=== PATIENT | female | born 1935 ===

== ENCOUNTER 2018-02-07 04:05 | Emergency (ER) | payer MEDICARE, OTHER ==
[2018-02-07 04:20] VITALS: RESP 20; TEMP 97
[2018-02-07] MEDS ORDERED: Sodium Chloride 0.9% 1,000 ML IV ONE (04:34)
[2018-02-07] MEDS ORDERED: Sodium Chloride 0.9% 1,000 ML ONE (04:47)
[2018-02-07] MEDS ORDERED: Morphine 4 MG/ML VIAL ONE (04:47)
[2018-02-07 04:55] LABS: SQUAMOUS EPITHIAL 2 /hpf (0-5); URINE BILIRUBIN NEGATIVE (NEGATIVE); URINE BLOOD NEGATIVE (NEGATIVE); URINE CLARITY Clear (Clear); URINE COLOR Yellow (YELLOW); URINE GLUCOSE (UA) NORMAL (Normal); URINE LEUKOCYTE ESTERASE NEG Leu/uL (Negative); URINE PROTEIN 2+ mg/dL (NEGATIVE); URINE UROBILINOGEN NORMAL mg/dL (0.2-1.0)
[2018-02-07 05:01] LABS: BASO % 0.6 % (0.0-2.0); EOS % 0.4 % (0.0-4.0); HEMOGLOBIN 14.6 g/dL (11.0-16.0); LYMPH # 1.3 K/uL (1.0-4.3); LYMPH % 18.4 % (20.0-40.0); MEAN CELL VOLUME 92.3 fL (81.0-99.0); MEAN CORPUSCULAR HEMOGLOBIN 31.3 pg (27.0-31.0); MEAN CORPUSCULAR HGB CONC 33.9 g/dL (33.0-37.0); MEAN PLATELET VOLUME 8.8 fL (7.2-11.7); MONO # 0.5 K/uL (0.0-0.8); MONO % 7.5 % (0.0-10.0); NEUT # 5.3 K/uL (1.8-7.0); NEUT % 73.1 % (50.0-75.0); RBC 4.68 Mil/uL (3.80-5.20); RED CELL DISTRIBUTION WIDTH 15.1 % (11.5-14.5); WHITE BLOOD COUNT 7.3 K/uL (4.8-10.8)
[2018-02-07 05:11] LABS: INR 0.9; PROTHROMBIN TIME 10.3 SECONDS (9.7-12.2)
[2018-02-07 05:18] LABS: ALB/GLOB RATIO 1.5 (1.0-2.1); ALBUMIN 4.7 g/dL (3.5-5.0); BLOOD UREA NITROGEN 18 mg/dL (7-17); CALCIUM 10.6 mg/dl (8.6-10.4); GFR NON-AFRICAN AMERICAN > 60; LIPASE 72 U/L (23-300)
[2018-02-07 05:29] LABS: B-TYPE NATRIURETIC PEPTIDE 45.6 pg/mL (0-900)
[2018-02-07 05:36] LABS: ALT/SGPT 25 U/L (9-52); AST/SGOT 32 U/L (14-36)
--- NOTE | 2018-02-07 05:37 | C.PDOC ---
History Of Present Illness 83 y/o female presents to the ED complaining of sudden onset of epigastric pain that woke the patient up from her sleep a few hours ago, prompting ED visit. She reports that the pain radiates to her left shoulder. The patient denies any trauma/ recent injury, fever, chills nausea or vomiting. Time Seen by Provider: 02/07/18 04:23 Chief Complaint (Nursing): Abdominal Pain History Per: Patient History/Exam Limitations: no limitations Onset/Duration Of Symptoms: Hrs Current Symptoms Are (Timing): Still Present Location Of Pain/Discomfort: Epigastric Quality Of Discomfort: "Pain" Associated Symptoms: denies: Fever, Chills, Nausea, Vomiting Recent travel outside of the [place]: No Past Medical History Reviewed: Historical Data, Nursing Documentation, Vital Signs Vital Signs: Last Vital Signs Temp 97 F L 02/07/18 04:13 Pulse 81 02/07/18 04:13 Resp 20 02/07/18 04:13 BP 162/88 H 02/07/18 04:13 Pulse Ox 98 02/07/18 04:13 - Medical History PMH: Alzheimer's Disease, Arthritis, Osteoporosis Other Surgeries: left knee Family History: States: Unknown Family Hx - Social History Hx Alcohol Use: No Hx Substance Use: No - Immunization History Hx Tetanus Toxoid Vaccination: No Hx Influenza Vaccination: No Hx Pneumococcal Vaccination: No Review Of Systems Except As Marked, All Systems Reviewed And Found Negative. Constitutional: Negative for: Fever, Chills Gastrointestinal: Negative for: Nausea, Vomiting Physical Exam - Physical Exam Appears: Other (appears younger than stated age) Skin: Warm, Dry Head: Atraumatic, Normacephalic Eye(s): bilateral: PERRL, EOMI Neck: Supple Chest: Symmetrical Cardiovascular: Rhythm Regular, No Murmur Respiratory: No Rales, No Rhonchi, No Wheezing Gastrointestinal/Abdominal: Soft, Tenderness (epigastric ), No Distention Back: No CVA Tenderness Extremity: Bilateral: Normal Color And Temperature, Normal ROM ED Course And Treatment - Laboratory Results Result Diagrams: 02/07/18 04:58 02/07/18 04:58 Lab Interpretation: Normal (ua neg.) ECG: Interpreted By Me ECG Rhythm: Sinus Rhythm ECG Interpretation: Normal Rate From EC O2 Sat by Pulse Oximetry: 98 (RA) Pulse Ox Interpretation: Normal - Radiology CXR: Interpreted by Me CXR Interpretation: Yes: No Acute Disease - Other Rad abd x 2 X-Ray: Interpreted by Me (increased stool, no obst) - CT Scan/US CT abd/pelvis Other Rad Studies (CT/US): Radiology Report Reviewed (no acute findings, mild gastroparesis, constipation) Reevaluation Time: 07:01 Reassessment Condition: Improved Medical Decision Making Medical Decision Making: Impression: 83 y/o female presents to the ED complaining of sudden onset of epigastric pain that woke the patient up from her sleep. She reports that the pain radiates to her left shoulder Plan: -CT abdomen and Pelvis -EKG -X-Ray -Morphine -Zofran Inj -IV FLuids mild gastroparesis/constipation Disposition Doctor Will See Patient In The: Office Counseled Patient/Family Regarding: Studies Performed, Diagnosis - Disposition Disposition: HOME/ ROUTINE Disposition Time: 07:02 Condition: GOOD Forms: [employer] ([place]) - Clinical Impression Clinical Impression: Abdominal pain, colicky - PA / DELIVERY DRIVER / Resident Statement MD/DO has reviewed & agrees with the documentation as recorded. - Scribe Statement The provider has reviewed the documentation as recorded by the Scribe Provider Attestation: Marita Mckeon All medical record entries made by the Scribe were at my direction and personally dictated by me. I have reviewed the chart and agree that the record accurately reflects my personal performance of the history, physical exam, medical decision making, and the department course for this patient. I have also personally directed, reviewed, and agree with the discharge instructions and disposition.
[2018-02-07] MEDS ORDERED: Iodixanol 320 MG/ML 100 ML BOTTLE IV ONE (05:43)
[2018-02-07 06:33] VITALS: BP 124/83; PULSE 71
[2018-02-07 07:02] VITALS: O2SAT 98
[2018-02-07] MEDS ORDERED: Magnesium Citrate Oral SOL (300 ml) PO STA (07:04)
[2018-02-07] MEDS ORDERED: Magnesium Citrate Oral SOL (300 ml) ONE (07:11)
--- NOTE | 2018-02-07 11:14 | CT ---
Date of service: 02/07/2018 PROCEDURE: CT Abdomen and Pelvis with contrast HISTORY: epigast refer to shoulder, ? perf fisc COMPARISON: None available. TECHNIQUE: Contrast dose: 100 mL Visipaque IV Radiation dose: Total exam DLP = 595.51 mGy-cm. This CT exam was performed using one or more of the following dose reduction techniques: Automated exposure control, adjustment of the mA and/or kV according to patient size, and/or use of iterative reconstruction technique. FINDINGS: LOWER THORAX: Bibasilar atelectasis. No visible pleural effusion or pneumothorax. Small hiatal hernia. LIVER: Superior most hepatic dome excluded from view. Otherwise unremarkable. GALLBLADDER AND BILE DUCTS: Unremarkable. PANCREAS: Fatty atrophy of the pancreas. SPLEEN: Unremarkable. ADRENALS: Unremarkable. No mass. KIDNEYS AND URETERS: The kidneys enhance symmetrically. No hydronephrosis or obstructing calculus identified. Too small to characterize bilateral renal hypodensities; statistically likely cysts. VASCULATURE: No aortic aneurysm. Atherosclerotic calcifications present. BOWEL: The stomach is nondistended. The gastric wall appears thickened. Lack of oral contrast limits evaluation for bowel pathology. Bowel loops appear within normal limits of caliber without evidence of obstruction. Diverticulosis without CT evidence of acute diverticulitis. 12 mm rounded fat density appears to reside within the colon near the terminal ileum. APPENDIX: The appendix appears within normal limits of caliber. No secondary signs of acute appendicitis. PERITONEUM: No significant free fluid. No definite free air. LYMPH NODES: No bulky adenopathy identified. BLADDER: Unremarkable. REPRODUCTIVE: Uterus is absent consistent with hysterectomy. BONES: Posterior lumbar fusion at L4-L5 with anterolisthesis of L4 on L5. L1 compression fracture deformity, age indeterminate. OTHER FINDINGS: Scattered surgical clips. IMPRESSION: Gastric wall thickening may be exaggerated by nondistention of the stomach. Correlate clinically for possibility of gastritis. Diverticulosis without CT evidence of acute diverticulitis. 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 Posterior lumbar fusion at L4-L5 with anterolisthesis of L4 on L5. L1 compression fracture deformity, age indeterminate. Additional findings as above. Preliminary impression was provided by [facility]. Study marked for PA review.
--- NOTE | 2018-02-08 10:31 | RAD ---
Date of service: 02/07/2018 PROCEDURE: Radiographs of the chest and abdomen (obstructive series) HISTORY: abd pain COMPARISON: Left ribs with chest 10/03/2015. TECHNIQUE: AP radiograph of the chest, with upright and supine radiographs of the abdomen. FINDINGS: CHEST: Lungs: Clear. Cardiovascular: Prominent cardiac silhouette identified. No pulmonary vascular congestion appreciated. Aortic ectasis noted once again. Pleura: No pleural fluid. No pneumothorax. Other findings: None. ABDOMEN AND PELVIS: Bowel: Unremarkable bowel gas pattern. No evidence of mechanical obstruction. Free air: None. An air-fluid level is seen in the region of the gastric viscus at the left upper quadrant. Bones: Inferior lumbar sacral spinal fusion hardware Other findings: None. IMPRESSION: No acute interval cardiopulmonary disease appreciable. Nonobstructive bowel gas pattern. If symptoms persist or worsen follow-up and pelvis CT with contrast should be considered.
--- NOTE | 2018-02-10 17:34 | CARD ---
APPROVED REPORT Date of service: 02/07/2018 EKG Measurement Heart [id number] <Conclusion> Normal sinus rhythm Minimal voltage criteria for LVH, may be normal variant Nonspecific ST abnormality Abnormal ECG
== END 2018-02-07 07:35 | disposition home or self-care (01) ==
LOC: C.ER 04:05
DX: R10.13 Epigastric pain (principal); R10.84 Generalized abdominal pain; G30.9 Alzheimer's disease, unspecified; M81.0 Age-related osteoporosis without current pathological fracture
CPT/HCPCS: 74022; 74177; 80053; 81001; 83690; 83880; 84484; 85025; 85610; 85730; 93005; 96361; 96374; 96375; 99285; J2270; J2405; J7030; Q9967